=== PATIENT | female | born 1965 | race Caucasian/White ===

== ENCOUNTER → 2016-07-24 | Outpatient (CLI) | payer BC | LOC: MC.RAD 07:00 | DX: Z12.31 Encounter for screening mammogram for malignant neoplasm of breast (principal); D24.2 Benign neoplasm of left breast; D24.1 Benign neoplasm of right breast ==

== ENCOUNTER 2016-10-20 08:03 | Day surgery (SDC) | payer BC ==
[~2016-10-20] VITALS: Ht 167.6 cm; Wt 71.9 kg
[2016-10-20 08:30] VITALS: BP 138/101; PULSE 77; TEMP 98.3
[2016-10-20 09:50] VITALS: BP 116/85; PULSE 85; TEMP 97.5
[2016-10-20 10:05] VITALS: BP 1296/96; PULSE 85
[2016-10-20 10:20] VITALS: BP 128/87; PULSE 73
[2016-10-20 10:35] VITALS: BP 140/93; PULSE 68
== END 2016-10-20 10:52 | disposition home or self-care (01) ==
LOC: SDCO 08:03
DX: Z12.31 Encounter for screening mammogram for malignant neoplasm of breast (principal); K57.30 Diverticulosis of large intestine without perforation or abscess without bleeding
CPT/HCPCS: J2250; J3010; J7030